=== PATIENT | female | born 1980 | race Hispanic/Latino ===

== ENCOUNTER 2024-08-01 12:09 | Emergency (ER) | payer OTHER ==
[~2024-08-01] VITALS: Ht 165.1 cm; Wt 72.6 kg
[2024-08-01 12:09] VITALS: TEMP 98.2
[2024-08-01 12:29] LABS: BASOPHILS % 0.5 % (0.0-1.0); EOSINOPHILS % 0.6 % (0.0-6.0); HEMATOCRIT 40.1 % (34.2-44.1); HEMOGLOBIN 13.2 g/dL (12.0-16.0); LYMPHOCYTES # (AUTO) 2.1 (1.0-3.2); LYMPHOCYTES % 32.3 % (18.0-39.1); MEAN CORPUSCULAR HEMOGLOBIN 29.7 pg (28-32); MEAN CORPUSCULAR HGB CONC 32.9 g/dL (31-35); MEAN CORPUSCULAR VOLUME 90.3 fL (81-99); MONOCYTES # (AUTO) 0.5 (0.2-0.8); MONOCYTES % 7.3 % (4.4-11.3); NEUTROPHILS # (AUTO) 3.9 (2.1-6.9); PLATELET COUNT 268 x10e3/uL (140-360); RED BLOOD COUNT 4.44 x10e6/uL (3.6-5.1); RED CELL DISTRIBUTION WIDTH 12.8 % (11.7-14.4); WHITE BLOOD COUNT 6.59 x10e3/uL (4.8-10.8)
[2024-08-01 12:45] LABS: INR 0.89; PROTHROMBIN TIME 12.5 seconds (11.9-14.5)
[2024-08-01] MEDS ORDERED: IOPAMIDOL 370 MG/ML 100 ML INFUS..BTL INJ ONE (12:45)
[2024-08-01] MEDS ORDERED: SODIUM CHLORIDE 0.9% 100 ML ONE (12:45)
[2024-08-01 12:46] LABS: PARTIAL THROMBOPLASTIN TIME 24.3 seconds (23.8-35.5)
[2024-08-01 12:54] LABS: ALBUMIN 4.3 g/dL (3.5-5.0); ALBUMIN/GLOBULIN RATIO 1.4 (0.8-2.0); ANION GAP 13.2 mmol/L (8-16); BILIRUBIN,TOTAL 0.4 mg/dL (0.2-1.2); CALCIUM 9.2 mg/dL (8.4-10.2); CREATININE, SERUM 0.8 mg/dL (0.57-1.11); POTASSIUM 4.2 mmol/L (3.5-5.1); TOTAL PROTEIN 7.3 g/dL (6.5-8.1)
[2024-08-01] MEDS: SODIUM CHLORIDE 0.9% 1000ML 1,000 ML IV STA (13:03)
[2024-08-01 13:06] LABS: TROPONIN I 0.002 ng/mL (0-0.300)
[2024-08-01] MEDS ORDERED: VALTREX1000 MG PO (14:51)
[2024-08-01] MEDS ORDERED: METHOCARBAMOL500 MG PO (14:51)
[2024-08-01] MEDS ORDERED: MEDROL4 M2 PO (14:51)
[2024-08-01 15:03] VITALS: PULSE 66; RESP 14; O2SAT 98
== END 2024-08-01 16:08 | disposition home or self-care (01) ==
LOC: ER 12:39
DX: M54.2 Cervicalgia (principal); R20.2 Paresthesia of skin; R53.83 Other fatigue
CPT/HCPCS: 36415; 70450; 70496; 70498; 71045; 72125; 80053; 82550; 83735; 84484; 84702; 85025; 85610; 85730; 93005; 99284; J7030; J7050; Q9967